=== PATIENT | male | born 1960 | race Caucasian/White ===

== ENCOUNTER 2024-06-29 06:13 | Emergency (ER) | payer MEDICAID, MEDICARE ==
[~2024-06-29] VITALS: Ht 175.3 cm; Wt 72.7 kg
[2024-06-29 07:04] VITALS: BP 132/78; PULSE 78; RESP 18; TEMP 98.1; O2SAT 97
== END 2024-06-29 07:04 | disposition home or self-care (01) ==
LOC: ER 06:14
DX: Z02.89 Encounter for other administrative examinations (principal)
CPT/HCPCS: 99283